=== PATIENT | female | born 1945 | race Caucasian/White ===

== ENCOUNTER → 2017-02-13 | Outpatient (CLI) | payer MEDICARE ==
[~2017-02-13] MED LIST: ALEN70TA5 PO; ASCO10004 PO; ASPI-650 PO; CALC1CAP8 PO; CHOL10003 PO; CYAN10008 PO; GARL10002 PO; LISI5TAB7 PO; MAGN250T8 PO; MULT-230 PO; PANT40TA5 PO; [UNRECOGNIZED DRUG - CODE] PO
[2017-02-13 10:39] LABS: BLOOD UREA NITROGEN 10 mg/dL (7-18)
== END | disposition home or self-care (01) ==
LOC: STAR 09:30
PROVIDERS: ATTEND Surgery
DX: Z01.818 Encounter for other preprocedural examination (principal)
CPT/HCPCS: 36415; 80048; 85025; 93005

== ENCOUNTER 2017-02-17 11:33 | Day surgery (SDC) | payer MEDICARE ==
[~2017-02-17] VITALS: Ht 165.1 cm; Wt 68.2 kg
[2017-02-17] MEDS ORDERED: PROTAMINE SULFATE 10 MG/ML, 25ML ONE (13:52)
[2017-02-17] MEDS ORDERED: MIDAZOLAM 1 MG/ML, 5ML ONE (13:52)
[2017-02-17] MEDS ORDERED: FENTANYL PF 100 MCG/2ML ONE (13:53)
[2017-02-17] MEDS ORDERED: FLUMAZENIL 0.1 MG/1 ML, 5ML ONE (13:53)
[2017-02-17] MEDS ORDERED: HEPARIN 1,000 UNITS/ML, 10ML ONE (13:53)
[2017-02-17] MEDS ORDERED: NALOXONE 1 MG/ML, 2ML ONE (13:53)
[2017-02-17] MEDS ORDERED: NITROGLYCERIN 5 MG/ML, 10ML ONE (13:53)
[2017-02-17] MEDS ORDERED: LIDOCAINE 2%, 20ML ONE (13:55)
[2017-02-17] MEDS ORDERED: VISIPAQUE 270 MG/ML, 150ML BOTTLE ONE (14:00)
[2017-02-17] MEDS ORDERED: hydrALAzine 20 MG/ML, 1ML ONE (15:20)
[2017-02-17] MEDS ORDERED: CLOPIDOGREL 75 MG TABLET ONE (16:36)
[2017-02-17] MEDS ORDERED: CLOPIDOGREL 75 MG TABLET PO ONE (17:00)
== END 2017-02-17 18:45 | disposition home or self-care (01) ==
LOC: OUT 11:33
PROVIDERS: ATTEND Surgery
DX: I70.212 Atherosclerosis of native arteries of extremities with intermittent claudication, left leg (principal); I10 Essential (primary) hypertension; K21.9 Gastro-esophageal reflux disease without esophagitis; M81.0 Age-related osteoporosis without current pathological fracture; Z90.49 Acquired absence of other specified parts of digestive tract; Z82.49 Family history of ischemic heart disease and other diseases of the circulatory system; Z82.3 Family history of stroke; Z80.6 Family history of leukemia; Z72.89 Other problems related to lifestyle; Z87.891 Personal history of nicotine dependence
CPT/HCPCS: 37225; 75630; 99156; 99157; C1714; C1725; C1751; C1760; C1769; C1884; C1894; C2623; J0360; J1644; J2250; J3010; J3490; Q9966; 76937; J2720; J2310